=== PATIENT | female | born 1930 | race Caucasian/White ===

== ENCOUNTER 2016-11-04 14:52 | Emergency (ER) | payer MEDICARE, OTHER ==
[2016-11-04 15:35] VITALS: BP 200/71
--- NOTE | 2016-11-04 16:51 | EDM.PDOC ---
ED HPI GENERAL MEDICAL PROBLEM - General Chief Complaint: Laceration Stated Complaint: RT THUMB LACERATION Time Seen by Provider: 11/04/16 15:51 Source of Information: Reports: Patient History Limitations: Reports: No Limitations - History of Present Illness INITIAL COMMENTS - FREE TEXT/NARRATIVE: This patient comes in for a laceration of the right thumb. She was at home and she was opening a tin can when the can slipped and lacerated her thumb.. She can't get it to stop bleeding. - Related Data Allergies Allergy/AdvReac Type Severity Reaction Status Date / Time codeine Allergy Nausea Verified 11/04/16 15:38 morphine Allergy Nausea Verified 11/04/16 15:38 Home Meds: Home Meds Amiodarone [Cordarone] 11/04/16 [History] Aspirin 11/04/16 [History] Dexameth/Neomy/Polymyx B [Maxitrol Ophth Oint] 11/04/16 [History] Ergocalciferol (Vitamin D2) [Ergocalciferol] 11/04/16 [History] Ergocalciferol (Vitamin D2) [Vitamin D2] 11/04/16 [History] FLUoxetine [PROzac] 11/04/16 [History] Ferrous Gluconate [Ferrous Gluconate] 11/04/16 [History] Furosemide 11/04/16 [History] Levothyroxine [Synthroid] 11/04/16 [History] Losartan [Cozaar] 11/04/16 [History] Metoprolol Succinate [Toprol XL] 11/04/16 [History] Nitroglycerin [Nitrostat] 11/04/16 [History] Polyethylene Glycol 3350 [Miralax] 11/04/16 [History] Ranitidine [Zantac] 11/04/16 [History] Simvastatin [Simvastatin] 11/04/16 [History] amLODIPine [Norvasc] 11/04/16 [History] traMADol [Ultram] 11/04/16 [History] Past Medical History - Past Surgical History HEENT Surgical History: Reports: Tonsillectomy Cardiovascular Surgical History: Reports: Coronary Artery Bypass GI Surgical History: Reports: Appendectomy, Cholecystectomy Female Surgical History: Reports: Hysterectomy Musculoskeletal Surgical History: Reports: Joint Replacement Social & Family History - Tobacco Use Smoking Status *Q: Never Smoker ED ROS GENERAL - Review of Systems Review Of Systems: ROS reveals no pertinent complaints other than HPI. ED EXAM, SKIN/RASH Exam: See Below Exam Limited By: No Limitations General Appearance: Alert, WD/WN, No Apparent Distress Extremities: Other (There is a laceration to the pad of the right thumb it is approximately 3 cm long. It is oozing blood slowly. It is a superficial laceration with the edges well approximated. It does not need suturing.) Course - Vital Signs Last Recorded V/S: Last Vital Signs Temp 36.7 C 11/04/16 15:42 Pulse 62 11/04/16 15:42 Resp 16 11/04/16 15:42 BP 200/71 H 11/04/16 15:42 Pulse Ox 96 11/04/16 15:42 - Orders/Labs/Meds Meds: Medications Discontinued Medications Generic Name Dose Route Start Last Admin Trade Name Usha PRN Reason Stop Dose Admin Lidocaine HCl 5 ml 11/04/16 15:56 11/04/16 16:00 Xylocaine-Mpf 1% INJECT 11/04/16 15:57 5 ml ONETIME ONE Administration - Re-Assessments/Exams Free Text/Narrative Re-Assessment/Exam: 11/04/16 16:53 The wound was cleaned with Hibiclens and irrigated copiously with saline. It continued to ooze despite direct pressure so a small tourniquet was placed around it and Dermabond was applied. When the tourniquet was removed a small area continued to bleed and this could not be readily stopped. Therefore direct pressure was then applied began and after about 5 minutes her pressure the oozing had completely stopped so more Dermabond was applied which gave good hemostasis as well as a good mechanical closure. Departure - Departure Time of Disposition: 16:49 Disposition: Home, Self-Care 01 Condition: fair Clinical Impression: Laceration of right thumb - Discharge Information Referrals: Onofre Shane MD [Primary Care Provider] - Forms: ED Department Discharge Additional Instructions: Allow the glue to remain on the cut until it falls off. 7 days should be okay. You may get the glue wet briefly the don't soak it. Don't describe it and don 't put any kind of ointment over it. It does not need any kind of bandage. Watch for signs of infection.
== END 2016-11-04 17:06 | disposition home or self-care (01) ==
LOC: JP.ED 14:52
DX: S61.011A Laceration without foreign body of right thumb without damage to nail, initial encounter (principal); Z79.82 Long term (current) use of aspirin; Z79.899 Other long term (current) drug therapy; Z98.890 Other specified postprocedural states; Z90.49 Acquired absence of other specified parts of digestive tract; Z90.710 Acquired absence of both cervix and uterus; Z95.1 Presence of aortocoronary bypass graft; Z88.5 Allergy status to narcotic agent; Z88.8 Allergy status to other drugs, medicaments and biological substances; W20.8XXA Other cause of strike by thrown, projected or falling object, initial encounter
CPT/HCPCS: 12002; 99282-25; 99283-25